=== PATIENT | male | born 1990 | race Caucasian/White ===

== ENCOUNTER 2024-09-12 19:37 | Emergency (ER) | payer OTHER ==
[~2024-09-12] VITALS: Ht 175.3 cm; Wt 99.8 kg
[2024-09-12 20:27] VITALS: BP 125/75; TEMP 98.1; O2SAT 98
[2024-09-12] MEDS ORDERED: NAPR-1164 PO (21:12)
== END 2024-09-12 21:31 | disposition home or self-care (01) ==
LOC: ER 19:53
DX: S92.302A Fracture of unspecified metatarsal bone(s), left foot, initial encounter for closed fracture (principal); J45.909 Unspecified asthma, uncomplicated; W09.8XXA Fall on or from other playground equipment, initial encounter; Y93.89 Activity, other specified; Y92.89 Other specified places as the place of occurrence of the external cause; Y99.8 Other external cause status
CPT/HCPCS: 73630-TC